=== PATIENT | female | born 1945 | race Caucasian/White ===

== ENCOUNTER 2023-03-28 12:30 | Emergency (ER) | payer MEDICARE, OTHER, SELFPAY ==
[2023-03-28 12:37] VITALS: BP 186/123; PULSE 76; RESP 16; TEMP 36.6; O2SAT 98; BMI 44.9
[2023-03-28 12:42] LABS: Glucose Point of Care 113 mg/dL (70-110)
--- NOTE | 2023-03-28 12:51 | ED_ITS ---
HPI - Dizziness General: Chief Complaint: Dizziness Stated Complaint: Dizzy, vision blurry, pressure in back of neck Time Seen by Provider: 03/28/23 12:37 History of Present Illness: HPI Narrative: Patient presents to the ER with complaints of dizziness for 2 weeks and change in vision for 5 days. Blood sugar upon arrival was 213. Nothing makes this vision change and dizziness worse or better. Patient denies any falls. Patient does use a walker. Patient denies any pain at this time. Review of Systems General: Reports: 10 or more systems reviewed and unremarkable except in HPI and below Physical Exam Const: COMMON NORMALS: no acute distress, average body habitus, patient oriented x3, no limitations, healthy appearing, alert and well nourished HENMT: COMMON NORMALS: normocephalic, atraumatic, hearing grossly normal bilaterally, external ears normal, Normal external nose present and moist oral mucous membranes HEAD & SCALP: normocephalic and atraumatic NOSE: Normal external nose present EXTERNAL EAR: Yes external ears normal Eye: COMMON NORMALS: Equal, round and reactive pupils present, EOMs intact bilaterally, conjunctivae normal and no scleral icterus CONJUNCTIVA: Yes conjunctivae normal PUPIL: Yes Equal, round and reactive pupils present Neck/C-Spine: COMMON NORMALS: full ROM, no lymphadenopathy, supple, no meningeal signs, no JVD and Thyroid normal THYROID: Thyroid normal Lymph: LYMPHATIC: no lymphadenopathy noted Chest: COMMONS NORMALS: normal inspection of the chest and normal palpation of entire chest wall Resp: COMMON NORMALS: normal respiratory effort, No retractions, No use of accessory muscles and clear to auscultation bilaterally AUSCULTATION: clear to auscultation bilaterally Cardio: COMMON NORMALS: no JVD, regular rate, regular rhythm, S1 normal heart sound present, S2 normal heart sound present, No gallops present (Cardio), No clicks present (Cardio), No murmurs present (Cardio) and No rub (Cardio) RATE: regular rate RHYTHM: regular rhythm HEART SOUNDS: S1 normal heart sound present and S2 normal heart sound present GI: COMMON NORMALS: Normal to inspection, nondistended, normoactive bowel sounds present, Soft to palpation, non-tender, No hepatosplenomegaly present and no masses PALPATION: Yes Soft to palpation and Yes No hepatosplenomegaly present : COMMON NORMALS: Yes no CVA tenderness BLADDER/KIDNEY EXAM: Yes no CVA tenderness Back/Pelvis: COMMON NORMALS: no CVA tenderness Neuro: COMMON NORMALS: patient oriented x3 SENSORIUM/ORIENTATION: Yes alert MENINGEAL SIGNS: Yes no meningeal signs Course 2 Vital Signs: Vital signs: Vital Signs Temperature 97.8 F 03/28/23 12:37 Pulse Rate 64 03/28/23 15:10 Respiratory Rate 20 H 03/28/23 15:10 Blood Pressure 176/85 03/28/23 15:10 Pulse Oximetry 97 03/28/23 15:10 Oxygen Delivery Me thod Room Air 03/28/23 13:16 MDM - Dizziness Medical Decision Making Patient arrives feeling dizzy for 2 weeks and having blurry vision for 5 days. Patient has had cataract surgery in the past and says she will follow-up with her eye doctor for the blurry vision. Dizziness she has had before. Was evaluated with physical exam and lab work lab work was essentially benign. Head CT showed no acute intracranial findings but moderate small vessel disease and mild mild to moderate parenchymal loss. These findings was discussed with the patient to is acceptable to follow-up with her PCP in the next week and follow- up with her eye doctor within the next week. Patient be discharged home Differential Diagnosis Unlikely adverse reaction to drug, benign paroxysmal positional vertigo, orthostatic hypotension, vertebral basilar insufficiency, cerebrovascular accident, acute vestibular neuronitis or transient cerebral ischemia Medical Records I reviewed the patient's medical records. Lab Data I reviewed the patient's lab results. 03/28/23 12:40 03/28/23 12:[address] 03/28/23 12:53 IMPRESSION: 1. No evidence of intracranial hemorrhage or mass effect. 2. Moderate small vessel changes. Mild to moderate parenchymal volume loss. 3. Intracranial vascular calcification. 4. No acute intracranial findings. Laboratory Results WBC 11.5 10^3/uL (4.0-10.0) H 03/28/23 12:40 RBC 5.34 10^6/uL (4.1-5.3) H 03/28/23 12:40 Hgb 14.0 g/dL (11.5-15.3) 03/28/23 12:40 Hct 45.2 % (37.0-47.0) 03/28/23 12:40 MCV 84.6 fl (81-99) 03/28/23 12:40 MCH 26.2 pg (28.0-34.0) L 03/28/23 12:40 MCHC 31.0 g/dL (30.0-36.0) 03/28/23 12:40 RDW 15.1 % (12.1-15.1) 03/28/23 12:40 Plt Count 189 10^3/cmm (130-400) 03/28/23 12:40 MPV 10.8 fL (7.4-10.4) H 03/28/23 12:40 Neut % (Auto) 42.1 % 03/28/23 12:40 Lymph % (Auto) 49.3 % 03/28/23 12:40 [place] % (Auto) 6.7 % 03/28/23 12:40 Eos % (Auto) 1.3 % 03/28/23 12:40 Baso % (Auto) 0.3 % 03/28/23 12:40 Neut # (Auto) 4.83 10^3/uL (1.8-7.7) 03/28/23 12:40 Lymph # (Auto) 5.7 10^3/uL (0.8-4.8) H 03/28/23 12:40 [place] # (Auto) 0.8 10^3/uL (0.2-0.9) 03/28/23 12:40 Eos # (Auto) 0.2 10^3/uL (0.0-0.8) 03/28/23 12:40 Baso # (Auto) 0.0 10^3/uL (0.0-0.1) 03/28/23 12:40 Nucleated RBC % (auto) 0 % 03/28/23 12:40 Nucleated RBCs # 0.0 /100WBC 03/28/23 12:40 Sodium 143 mmol/L (136-145) 03/28/23 12:40 Potassium 4.1 mmol/L (3.5-5.1) 03/28/23 12:40 Chloride 106 mmol/L (98-107) 03/28/23 12:40 Carbon Dioxide 25 mmol/L (22-29) 03/28/23 12:40 Anion Gap 16.1 (5-19) 03/28/23 12:40 BUN 14 mg/dL (8-23) 03/28/23 12:40 Creatinine 0.7 mg/dL (0.5-0.9) 03/28/23 12:40 GFR Calculation Not Reportable 03/28/23 12:40 Glucose 108 mg/dL (65-115) 03/28/23 12:40 POC Glucose 113 mg/dL (70-110) H 03/28/23 12:38 Calculated Osmolality 297 mOsm/kg (285-295) H 03/28/23 12:40 Calcium 9.3 mg/dL (8.5-10.5) 03/28/23 12:40 Total Bilirubin 0.5 mg/dL (0.15-1.2) 03/28/23 12:40 AST 23 U/L (0-32) 03/28/23 12:40 ALT 17 U/L (0-33) 03/28/23 12:40 Alkaline Phosphatase 101 U/L (35-105) 03/28/23 12:40 Total Protein 6.8 g/dL (6.6-8.7) 03/28/23 12:40 Albumin 4.2 g/dL (3.5-5.2) 03/28/23 12:40 Globulin 2.6 g/dL (1.3-4.6) 03/28/23 12:40 EKG Data EKG 1: I personally reviewed and interpreted this EKG as follows: EKG interpretation date: 03/28/23 EKG interpretation time: 12:41 Prior EKG tracings: not available for review Interpretation: EKG showed ventricular rate 76 beats a minute, CA interval 195, QRS duration 101, QTc 429, sinus rhythm with sinus arrhythmia no ST-T wave changes Discharge Plan Discharge Patient Disposition: Home Clinical Impression: Vertigo, Blurred vision, bilateral Condition: Stable Prescriptions: No Action albuterol sulfate 90 mcg/actuation HFA aerosol inhaler 1 - 2 puff INHALATION Q4H PRN (Reason: Shortness Of Breath) Dulera 200-5 mcg/actuation HFA aerosol inhaler 2 puff INHALATION BID Discharge Orders: Discharge ED (Routine); Ordered 03/29/23 Ordered By: Cam Swartz Patient Instructions: Blurred Vision (ED), Dizziness (ED) Activity Restrictions/Additional Instructions: Please follow-up with your family practice physician within the next 7 to 10 days and also your postage machine operator. You may benefit from further evaluation and treatment. If your symptoms worsen please feel free to return to the ER. Coding Level of Care Code ED [facility] Associate Professor for Donna Waletrs
--- NOTE | 2023-03-28 12:53 | ECG_ITS ---
[facility] Test Date: 2023-03-28 Pat Name: Coty Ellison Department: Room: Gender: Female Regulatory Process Manager: : 1945 Requested By: Cam Swartz Order Number: [id number] Zach MD: Dee Cruz M.D. Measurements Intervals [place] Rate: 76 P: 88 AR: 195 QRS: 13 QRSD: 101 T: 70 QT: 398 QTc: 450 Interpretive Statements SINUS RHYTHM WITH SINUS ARRHYTHMIA No previous ECG available for comparison Electronically Signed On 03-28-2023 15:59:22 CDT by Dee Cruz M.D. [email or web address]
--- NOTE | 2023-03-28 12:53 | CT_ITS ---
WS: [id number] CT HEAD TECHNIQUE: Noncontrast CT of the head obtained from the skullbase to the vertex. CLINICAL INFORMATION: dizziness, vision changes COMPARISON: None. DLP: 1043.[address] scans at [facility] use at least one of these dose optimization techniques: automated e xposure control; mA and/or kV adjustment per patient size (includes targeted exams where dose is matc hed to clinical indication); or iterative reconstruction. FINDINGS: No evidence of intracranial hemorrhage or mass effect. Ventricular system and basal cisterns are schulz nt. Moderate small vessel changes with moderate parenchymal volume loss. No extra-axial fluid collect ions. No evidence of mass or mass effect. Intracranial vascular calcification. Paranasal sinuses and mastoid air cells are well aerated. .Normal visualized soft tissues. CT/CT head wo con* [id number] IMPRESSION: 1. No evidence of intracranial hemorrhage or mass effect. 2. Moderate small vessel changes. Mild to moderate parenchymal volume loss. 3. Intracranial vascular calcification. 4. No acute intracranial findings.
--- NOTE | 2023-03-28 12:58 | PC.PHAR ---
PT STATES SHE ONLY HAS 2 PRESCRIPTION MEDICATIONS WHICH IS HER ALBUTEROL INHALER AND DULERA INHALER PT STATES SHE TAKES NO OTC MEDICATIONS
[2023-03-28 13:16] VITALS: BP 186/89; PULSE 67; RESP 12; O2SAT 97
[2023-03-28 13:24] LABS: Basophils % 0.3 %; Eosinophils # 0.2 10^3/uL (0.0-0.8); Eosinophils % 1.3 %; Hematocrit 45.2 % (37.0-47.0); Lymphocytes # 5.7 10^3/uL (0.8-4.8); Lymphocytes % 49.3 %; Mean Corpuscular Hemoglobin 26.2 pg (28.0-34.0); Mean Corpuscular Volume 84.6 fl (81-99); Mean Platelet Volume 10.8 fL (7.4-10.4); Monocytes # 0.8 10^3/uL (0.2-0.9); Monocytes % 6.7 %; Neutrophils # 4.83 10^3/uL (1.8-7.7); Neutrophils % 42.1 %; Nucleated Red Blood Cells % 0 %; Platelet Count 189 10^3/cmm (130-400); Red Blood Count 5.34 10^6/uL (4.1-5.3); Red Cell Distribution Width 15.1 % (12.1-15.1); White Blood Count 11.5 10^3/uL (4.0-10.0)
[2023-03-28 13:42] LABS: Alanine Aminotransferase 17 U/L (0-33); Albumin Level 4.2 g/dL (3.5-5.2); Alkaline Phosphatase 101 U/L (35-105); Anion Gap 16.1 (5-19); Aspartate Amino Transferase 23 U/L (0-32); Blood Urea Nitrogen 14 mg/dL (8-23); Calcium 9.3 mg/dL (8.5-10.5); Carbon Dioxide 25 mmol/L (22-29); Chloride 106 mmol/L (98-107); Creatinine Clr Calc Pharmacy 78.5664; Globulin 2.6 g/dL (1.3-4.6); Glucose 108 mg/dL (65-115); Osmolality Calculated 297 mOsm/kg (285-295); Potassium 4.1 mmol/L (3.5-5.1); Sodium 143 mmol/L (136-145); Total Bilirubin 0.5 mg/dL (0.15-1.2); Total Protein 6.8 g/dL (6.6-8.7)
[2023-03-28 14:26] VITALS: BP 207/94; PULSE 66; RESP 18; O2SAT 97
[2023-03-28] MEDS: hyDRALAzine 20 mg/mL INJ 1 mL IVP (14:41)
[2023-03-28 15:10] VITALS: BP 176/85; PULSE 64; RESP 20; O2SAT 97
== END 2023-03-28 15:11 | disposition home or self-care (01) ==
PROVIDERS: Emergency Provider Emergency Medicine
DX: R42 Dizziness and giddiness (principal); H53.8 Other visual disturbances
CPT/HCPCS: 36416; 70450; 80053; 82962; 85025; 93005; 96374; 99285; J0360

== ENCOUNTER 2025-04-27 02:04 | Emergency (ER) | payer MEDICARE, OTHER, SELFPAY ==
--- OUTSIDE RECORDS SUMMARY | 2025-04-27 02:20 | XMS_ITS | Encounter Summary ---
Author Organization [facility] Address [address] [place] [address] Care Team Providers Care Veneer Jointer Helper Name Role Phone Unavailable Primary Care Provider Unavailabl e Encounter Details Date Type Department Care Team (Late st Contact Info) Description 12/10/[address] [facility] Orthopedics- [address] [place] [address] Valentino Devine MD NO ADDRESS ON FILE Pain Social History Tobacco Use Types Packs/Day Years Used Date Smoking Tobacco: Never Alcohol Use Standard Drinks/Week Comments No 0 (1 standard drink = 0.6 oz pur e alcohol) Comments No Sex and Gender Information Value Date Recorded Sex Assigned at Not on file Legal Sex Female 5:51 AM SUPERVISOR WARPING DEPARTMENT Gender Identity Not on file Sexual Orientation Not on file Occupation Industry Job Start Date Job End Date Not on file Not on file Not on file Not on file documented as of this encounter Plan of Treatment Not on file documented as of this encounter Results * XR SHOULDER 2+ VW RIGHT (12/10/2011 3:09 PM SUPERVISOR WARPING DEPARTMENT) Anatomical Region Laterality Modality Upper Extremity Computed Radiogr aphy Narrative 12/12/2011 7:13 AM SUPERVISOR WARPING DEPARTMENT AP and axillary views of her 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 us Valentino Devine MD DIAGNOSTIC IMAGING ORDERA BLES Final Result documented in this encounter Visit Diagnoses Diagnosis Pain Generalized pain documented in this encounter
--- OUTSIDE RECORDS SUMMARY | 2025-04-27 02:20 | XMS_ITS | Clinical Summary ---
Author Organization [facility] Address [address] Attn: Epic Prelude ADT [place] [address] Care Team Providers Care Ribbon Blockmaker Name Role Phone Daphne Beck AIRCRAFT LOADMASTER SUPERINTENDENT Primary Care Provider [phone] Allergies Active Allergy Reactions Criticality Noted Date Comments Cortisone Rash High 06/01/2013 Pineapple Anaphylaxis High 01/23/2012 Watermelon Anaphylaxis High 01/23/2012 Active Problems Problem Noted Date Diagnosed Date Primary localized osteoarthrosis, lower leg bila t 06/01/2013 Knee pain, left 05/29/2013 Acromioclavicular joint arthritis bilat 12/10/19 12 Bilateral shoulder pain 10/26/2011 Unstable angina 10/22/2008 Generalized Osteoarthrosis, Involving Multiple S it 08/10/2008 Overview (02/01/2021): Most likely cause for symptoms of joint pain and stiffness. I would not favor the previously diagnosed condition of Rheumatoid Arthritis. Family History Medical History Relation Name Comments Cancer Father Other Father Mother fro m ALS Other Mother Relation Name Status Comments Daughter Alive Father Maternal Grandfather Maternal Grandmother Mother Paternal Grandfather Paternal Grandmother Social History Tobacco Use Types Packs/Day Years Used Date Smoking Tobacco: Never Smokeless Tobacco: Never Alcohol Use Standard Drinks/Week Comments No 0 (1 standard drink = 0.6 oz pur e alcohol) Comments Unknown Sex and Gender Information Value Date Recorded Sex Assigned at Not on file Legal Sex Female 10:35 AM SUPERINTENDENT OIL FIELD DRILLING Gender Identity Not on file Sexual Orientation Not on file Last Filed Vital Signs Vital Sign Reading Time Taken Comments Blood Pressure 170/80 11/01/2015 12:31 PM SUPERINTENDENT OIL FIELD DRILLING Pulse - - Temperature - - Respiratory Rate - - Oxygen Saturation - - Inhaled Oxygen Concentration - - Weight 131 kg (288 lb 12.8 oz) 11/01/2015 12:31 PM SUPERINTENDENT OIL FIELD DRILLING Height 165.1 cm (5' 5 ) 11/01/2015 12:31 PM SUPERINTENDENT OIL FIELD DRILLING Body Mass Index 48.06 11/01/2015 12:31 PM SUPERINTENDENT OIL FIELD DRILLING Plan of Treatment Health Maintenance Due Date Last Done Comments DTAP/TDAP/TD VACCINES (1 - Tdap) 1965 PNEUMOCOCCAL VACCINE 50+ YEARS (1 of 1 - PCV) 10/09/18 97 ZOSTER VACCINE (1 of 2) 1996 OSTEOPOROSIS SCREENING 2011 RSV VACCINE (60+ or ) (1 - 1-dose 75+ series) 2021 INFLUENZA VACCINE (#1) 2025 Care Teams Ribbon Blockmaker Relationship Specialty Start Date End Date Daphne Beck NP [address] [place] [address] [id number] PCP - General 08/10/08
--- OUTSIDE RECORDS SUMMARY | 2025-04-27 02:20 | XMS_ITS | Encounter Summary ---
Author Organization [facility] Address [address] [place] [address] Care Team Providers Care Radial Router Operator Name Role Phone Unavailable Primary Care Provider Unavailabl e Encounter Details Date Type Department Care Team (Late st Contact Info) Description 10/22/2008 Ancillary Orders [facility] Cardiology- [place] [address] [place] [address] Gemma Harris MD [address] [place] [address] Other and Unspecified Angina Pectoris Social History Tobacco Use Types Packs/Day Years Used Date Smoking Tobacco: Never Assessed Comments Unknown Sex and Gender Information Value Date Recorded Sex Assigned at Not on file Legal Sex Female 5:51 AM FINANCIAL REPORTING MANAGER Gender Identity Not on file Sexual Orientation Not on file documented as of this encounter Plan of Treatment Not on file documented as of this encounter Results * CL CORONARY ANGIOGRAM W/ POSS PCI (11/02/2008 3:30 PM FINANCIAL REPORTING MANAGER) Narrative Transcriptions Gemma Harris MD - 10/25/2008 8:16 AM CST COTY STEPHENSON [id number] PROCEDURE DATE: 10/25/2008 PROCEDURE: Left heart catheterization, selective coronary angiography,left ventriculography. INDICATION: Angina, history of coronary artery disease, prior myocardialinfarction. After consents were signed, the patient was taken to the CardiacCatheterization Laboratory, draped in a sterile fashion with exposure ofthe right femoral groin. A 6-Turkmen sheath was inserted. A 6-FrenchJudkins right 4 cm curve, Alberto left 4 cm curve and pigtail catheterswere used for diagnostic angiography. Left ventriculogram performed in the right anterior oblique projectionrevealed a normal LV systolic wall motion. Ejection fraction was 65%.There was no mitral regurgitation. There was no systolic gradient acrossthe aortic valve. LVEDP was normal at 3 mm of mercury. LV systolicpressure 110. Aortic pressure 110-120/70. Coronary angiographic evaluation demonstrated normal left main coronaryartery. The left anterior descending had normal plaque in its apicalsegment, but was otherwise free of significant disease, as were thediagonal vessels. The left circumflex was a medium sized vessel with nosignificant angiographic disease. Right coronary artery was dominant and demonstrated minimal plaquing.Posterior descending and posterior anterolateral branch were free ofsignificant disease in this dominant right coronary artery. CONCLUSIONS: 1. No evidence of significant coronary atherosclerotic heart disease. 2. Normal left ventricular systolic wall motion. Ejection fraction of65%. GEMMA HARRIS MD/[id number] sb D 10/25/2008 08:16:56 T 10/25/2008 08:19:38 [id number] cc: TALENT ASSISTANT REYNOLD PANTOJA DO 4H1 us Gemma Harris MD FLUOROSCOPY ORDERABLES Final Result documented in this encounter Visit Diagnoses Diagnosis Other and unspecified angina pectoris Unstable angina (CMS/HCC)- Primary Intermediate coronary syndrome Other and unspecified angina pectoris documented in this encounter
--- OUTSIDE RECORDS SUMMARY | 2025-04-27 02:20 | XMS_ITS | Clinical Summary ---
Author Organization [facility] melendez [facility] Address [address] [place] [address] Phone Care Team Providers Care Premium Note Interest Calculator Clerk Name Role Phone Unavailable Primary Care Provider Unavailabl e Allergies Active Allergy Reactions Criticality Noted Date Comments Cortisone Rash High 06/01/2013 Pineapple Anaphylaxis High 01/23/2012 Watermelon Anaphylaxis High 01/23/2012 Medications MULTIVITAMIN (DAILY VITAMIN FORMULA ORAL) Take by mouth daily. Active celecoxib (CELEBREX) 200 mg capsule Take 1 Cap by mouth daily. 45 Cap 0 12/10/2013 Active Active Problems Problem Noted Date Diagnosed Date Primary localized osteoarthrosis, lower leg bila t 06/01/2013 Knee pain, left 05/29/2013 Acromioclavicular joint arthritis bilat 12/10/19 12 Bilateral shoulder pain 10/26/2011 Unstable angina 10/22/2008 Generalized Osteoarthrosis, Involving Multiple S it 08/10/2008 Overview (08/10/2008): Most likely cause for symptoms of joint [...] on file Legal Sex Female 5:51 AM BOARDING MACHINE OPERATOR Gender Identity Not on file Sexual Orientation Not on file Occupation Industry Job Start Date Job End Date Not on file Not on file Not on file Not on file Last Filed Vital Signs Vital Sign Reading Time Taken Comments Blood Pressure 170/80 11/01/2015 12:31 PM BOARDING MACHINE OPERATOR Pulse 71 12/10/2013 1:29 PM BOARDING MACHINE OPERATOR Temperature 37.3 C (99.1 F) 08/10/2008 3:47 PM BOARDING MACHINE OPERATOR Respiratory Rate - - Oxygen Saturation - - Inhaled Oxygen Concentration - - Weight 131 kg (288 lb 12.8 oz) 11/01/2015 12:31 PM BOARDING MACHINE OPERATOR Height 165.1 cm (5' 5 ) 11/01/2015 12:31 PM BOARDING MACHINE OPERATOR Body Mass Index 48.06 11/01/2015 12:31 PM BOARDING MACHINE OPERATOR Plan of Treatment Health Maintenance Due Date Last Done Comments DTAP/TDAP/TD VACCINES (1 - Tdap) 1965 PNEUMOCOCCAL VACCINE 50+ YEARS (1 of 1 - PCV) 10/09/18 97 ZOSTER VACCINE (1 of 2) 1996 OSTEOPOROSIS SCREENING 2011 RSV VACCINE (60+ or ) (1 - 1-dose 75+ series) 2021 INFLUENZA VACCINE (#1) [address] [place] [address] MEDICARE PART A AND B Advance Directives For more information, please contact: [phone] * Full Code (Latest Code Status on File) Date Activated Date Inactivated Comments 10/25/2008 6:17 AM 10/25/2008 1:50 PM
--- OUTSIDE RECORDS SUMMARY | 2025-04-27 02:20 | XMS_ITS | Data Portability ---
Author Organization RICHI [facility], [facility] Address [address] [address] Care Team Providers Care Stunner Animal Name Role Phone KATELYNNRORY SANTOS Primary Care Provider [phone] Assessment Encounter Date Assessment Date Assessment LastModified by Organization Details LastModified Time 02/27/2024 02/27/2024 Pt offered PT. She wants to wait because her pain is improving. Not available 02/27/2024 15:10:57 09/15/2024 09/15/2024 We discussed medication for cholesterol and she is not interested at this time. Not available 09/15/2024 15:56:01 Plan of Treatment Reminders Order Date Submit Date Provider Last Modified By Organization Details Last Modified Time Details Appointments None recorded. Lab CMP, serum or plasma 2023 [facility], [address], [address], [place], [address], 13:45:26 lipid panel, blood 2023 [facility], [address], [address], [place], [address], 13:45:28 CBC 2023 [facility], [address], [address], [place], [address], 13:17:38 biopsy, tissue 2023 024 [facility], [address] [facility] [address] [place], [address], 4 21:00:17 Referral None recorded. Procedures excision, lesion (PROC) 2023 024 astrange1 2 [facility], [address] [place] [address] 1, [place], [address], 4 12:51:21 Surgeries None recorded. Imaging None recorded. Medication Orders propranolol 20 mg tablet 2024 025 [facility], [address] [place], [address], 16:07:14 Patient TargetsNo targets recorded. Patient InstructionsNo instructions recorded. Reason for Referral None Reported. Results Created Date Observation Date Name Description Value Unit Range Abnormal Flag Note LastModifiedBy Organization Detail LastModifiedTime 02/28/2003/05/2024 TISSU E PATHO LOGY clinical information None given Not Available [facility] [address], [place], [address], 03/05/2024 21:00:17 02/28/2003/05/2024 TISSU E PATHO LOGY pathologist Savita jones Jr., M.D. Board Certi fied in Anato alejandrina Patho logy, Clini teresa Patho logy and Cytop athol ogy, Speci alizi ng in Urolo gic Patho logy (elec troni c signa ture) Not Available [facility] [address] [place], [address], 03/05/2024 21:00:17 02/28/2003/05/2024 TISSU E PATHO LOGY A source Skin, left tempr al, excis ion Not Available [facility] [address] [place], [address], 03/05/2024 21:00:17 02/28/20 24 03/05/2024 TISSU E PATHO LOGY A gross description Speci men is recei faviola in 10% neutr al buffe red forma antonio, label ed with multi ple patie nt ident ifier s and consi sts of one piece from a punch skin biops y measu ring 0.4 x 0.3 x 0.3 cm, circu lar in shape and yello w-whi te in color . The yadira ns are inked green . The speci men is bisec maria dolores and entir maggie submi tted in one casse tte(s ). Gross exam( s) perfo rmed at: [facility] [address] [place] [address] [place] [address] Labor atory Direc tor: MARIA ESTHER Guevara MD Not Available [facility] [address] [place], [address], 03/05/2024 21:00:17 02/28/20 24 03/05/2024 TISSU E PATHO LOGY A diagnosis Trich ilemm palomo. Yadira ns appea r uninv olved . Not Available [facility] [address] [place], [address], 03/05/2024 21:00:17 09/08/20 24 09/08/2024 CBC WBC 11.7 x10 4.0-10 .5 high Not Available [facility] [address] [facility] 1, [place], [address], 09/08/2024 13:17:38 09/08/20 24 09/08/2024 CBC RBC 5.52 x10 3.50-5 .50 high Not Available [facility] [address] [facility] 1, [place], [address], 09/08/2024 13:17:38 09/08/20 24 09/08/2024 CBC HGB 14.8 g/dL 12.0-1 6.0 Not Available [facility] [address], [place], [address], 09/08/2024 13:17:38 09/08/20 24 09/08/2024 CBC HCT 44.6 % 37.0-4 7.0 Not Available [facility] [address], [place], [address], 09/08/2024 13:17:38 09/08/20 24 09/08/2024 CBC MCV 80.8 fL 80.0-9 9.9 Not Available [facility] [address], [place], [address], 09/08/2024 13:17:38 09/08/20 24 09/08/2024 CBC MCH 26.8 pg 27.0-3 2.0 low Not Available [facility] [address] [facility] 1, [place], [address], 09/08/2024 13:17:38 09/08/20 24 09/08/2024 CBC MCHC 33.1 g/dL 32.0-3 6.0 Not Available [facility] [address] [facility] 1, [place], [address], 09/08/2024 13:17:38 09/08/20 24 09/08/2024 CBC RDW 15.4 % 11.5-1 4.5 high Not Available [facility] [address] [facility] 1, [place], [address], 09/08/2024 13:17:38 09/08/20 24 09/08/2024 CBC plt 178.3 x10 140.0- 451.0 Not Available [facility] [address] [facility] 1, [place], [address], 09/08/2024 13:17:38 12/03/09/08/2024 CBC lymphocytes % 41.0 % 20.0-5 0.0 Not Available [facility] [address] [facility], [place], [address], 09/08/2024 13:17:38 09/08/20 24 09/08/2024 CBC granulcytes % 49.6 % 30.0-7 0.0 Not Available [facility] [address] [facility], [place], [address], 09/08/2024 13:17:38 09/08/20 24 09/08/2024 CBC monocytes % 7.1 % 2.0-16 .0 Not Available [facility] [address] [facility], [place], [address], 09/08/2024 13:17:38 09/08/20 24 09/08/2024 CBC granulcytes# 5.8 x10 Not Leda ilable [facility] [address] [facility] 1, [place], [address], 09/08/2024 13:17:38 09/08/20 24 09/08/2024 CBC lymphocytes # 4.8 x10 Not Available [facility] [address] [facility], [place], [address], 09/08/2024 13:17:38 09/08/20 24 09/08/2024 CBC monocytes # 0.8 x10 Not Avai [facility]able [facility] [address] [facility] 1, [place], [address], 09/08/2024 13:17:38 09/08/20 24 09/08/2024 CMP (FEMA LE) glucose 88.0 mg/dL 60.0-9 9.0 Not Available [facility] [address] [facility], [place], [address], 09/08/2024 13:45:26 09/08/20 24 09/08/2024 CMP (FEMA LE) BUN (blood urea nitrogen) 20.0 mg/dL 10.0-2 6.0 Not Available [facility] [address] [facility] 1, [place], [address], 09/08/2024 13:45:26 09/08/20 24 09/08/2024 CMP (FEMA LE) creatinine (serum) 1.0 mg/dL 0.4-1. 5 Not Available [facility] [address] [facility], [place], [address], 09/08/2024 13:45:26 09/08/20 24 09/08/2024 CMP (FEMA LE) BUN/creatini ne ratio 20.00 ratio Not Available [facility] [address] [facility], [place], [address], 09/08/2024 13:45:26 09/08/20 24 09/08/2024 CMP (FEMA LE) eGFR calculated 57.1 Not Available [facility] [address] [facility], [place], [address], 09/08/2024 13:45:26 09/08/20 24 09/08/2024 CMP (FEMA LE) total protein 7.5 g/dL 6.0-8. 5 Not Available [facility] [address] [facility], [place], [address], 09/08/2024 13:45:26 09/08/20 24 09/08/2024 CMP (FEMA LE) total bilirubin 0.7 mg/dL 0.2-1. 3 Not Available [facility] [address] [facility], [place], [address], 09/08/2024 13:45:26 09/08/20 24 09/08/2024 CMP (FEMA LE) albumin 4.4 g/dL 3.5-5. 5 Not Available [facility] [address] [facility] [address] [facility] 1, [place], [address], 09/08/2024 13:45:26 09/08/20 24 09/08/2024 CMP (FEMA LE) globulin 3.1 calc Not Available [facility] [address] [facility] 1, [place], [address], 09/08/2024 13:45:26 09/08/20 24 09/08/2024 CMP (FEMA LE) AST (SGOT) 34.0 U/L 0.0-46 .0 Not Available [facility] [address] [facility] [address] [facility] 1, [place], [address], 09/08/2024 13:45:26 09/08/20 24 09/08/2024 CMP (FEMA LE) altv (SGPT) 19.0 U/L 13.0-6 9.0 normal Not Available [facility] [address] [facility] [address] [facility] 1, [place], [address], 09/08/2024 13:45:26 09/08/20 24 09/08/2024 CMP (FEMA LE) A/G ratio 1.4 ratio Not Available [facility] [address] [facility], [place], [address], 09/08/2024 13:45:26 09/08/20 24 09/08/2024 CMP (FEMA LE) ALP phos 97.0 U/L 30.0-1 40.0 normal Not Available [facility] [address] [facility] 1, [place], [address], 09/08/2024 13:45:26 09/08/20 24 09/08/2024 CMP (FEMA LE) calcium 9.7 mg/dL 8.4-10 .5 Not Available [facility] [address] [facility], [place], [address], 09/08/2024 13:45:26 09/08/20 24 09/08/2024 CMP (FEMA LE) sodium 143.0 mmol/ L 136.0- 145.0 Not Available [facility] [address] [facility] [address] [facility] 1, [place], [address], 09/08/2024 13:45:26 09/08/20 24 09/08/2024 CMP (FEMA LE) potassium 4.3 mmol/ L 3.5-5. 1 Not Available [facility] [address] [facility] [address] [facility] 1, [place], [address], 09/08/2024 13:45:26 09/08/20 24 09/08/2024 CMP (FEMA LE) chloride 105.0 mmol/ L 98.0-1 10.0 normal Not Available [facility] [address] [facility] [address] [facility] 1, [place], [address], 09/08/2024 13:45:26 09/08/20 24 09/08/2024 CMP (FEMA LE) C02 31.0 mmol/ L 22.0-3 1.0 Not Available [facility] [address] [facility] 1, [place], [address], 09/08/2024 13:45:26 09/08/20 24 09/08/2024 CMP (FEMA LE) anion gap 7.0 calc Not Available [facility] [address] [place] [address] [facility] 1, [place], [address], 09/08/2024 13:45:26 09/08/20 24 09/08/2024 CMP (FEMA LE) osmolality 297.1 calc Not Available [facility] [address] [facility] [address] [facility] 1, [place], [address], 09/08/2024 13:45:26 09/08/20 24 09/08/2024 LIPID PROFI LE (FEMA LE) cholesterol 215.0 mg/dL 0.0-20 0.0 high Not Available [facility] [address] [facility] 1, [place], [address], 09/08/2024 13:45:28 09/08/20 24 09/08/2024 LIPID PROFI LE (FEMA LE) trig 270.0 mg/dL 0.0-15 0.0 high Not Available [facility] [address] [facility] 1, [place], [address], 09/08/2024 13:45:28 09/08/20 24 09/08/2024 LIPID PROFI LE (FEMA LE) HDL - direct 40.0 mg/dL >40.0 Not Available [facility] [address] [facility] 1, [place], [address], 09/08/2024 13:45:28 09/08/20 24 09/08/2024 LIPID PROFI LE (FEMA LE) VLDL - direct 54.0 mg/dL Not Available [facility] [address] [facility] 1, [place], [address], 09/08/2024 13:45:28 09/08/20 24 09/08/2024 LIPID PROFI LE (FEMA LE) LDL - direct 121.0 mg/dL 0.0-13 0.0 Not Available [facility] [address] [facility] 1, [place], [address], 09/08/2024 13:45:28 Result Notes None recorded. Problems Name Problem SNOMED Code Status Onset Date Resolution Date Notes Provider Name and Address Organization Details Recorded Time Myocardi al infarcti on 37437861 Completed 202203/31/2025 Myocardia l infarctio n; 1980 - It may have been a panic attack based on the patients descripti on.; 2:53PM by Thad A. Erik, RN, Office Visit; Promoted; acuity set as *; JANES SHADYDALI Cardona, [facility] 14:37:13 Rheumato id pepper guevara 26420566 Active 2022 JANES SHADYDALI MIRACLE null, [facility] 14:37:17 Dyspnea 379044271 Active 2022 PETARRICK SHADYDALI MIRACLE null, [facility] 14:37:06 Body mass index 40+ - severely obese 009139014 Active 2022 JANES SHADYDALI Cardona, [facility] 14:36:53 Chronic obstruct po pulmonar y disease 79923725 Active 2022 JANES LEIJA Cardona, [facility] 14:36:57 Anxiety 23138172 Active 2024 Rory Zimmerman MD [address] [place] [address], [phone] , [facility] 16:02:00 Problem Notes None recorded. Procedures Surgical History Date Name Laterality Status Provider Name and Address Organization Details Recorded Time 02/27/20 24 jr shave biopsy completed Rory Zimmerman MD [address] [place] [address], [phone], [facility] 02/27/2024 15:10:26 Appendectomy completed JANES TAMEZ [facility] 02/12/2024 14:01:29 Imaging Results None recorded. Procedure Notes None recorded. Medical Equipment None Reported. Allergies Allergen ID Allergen Name Allergen Category Reaction Reaction Severity Criticality Documentation Date Start Date Code Code System Note Provider Name and Address Organization Details Recorded Time 39212 pineapple allergeni c extract food,medi cation anaphylax is Not available Not available 05/04/2023 05739 5 RxNorm React ion: Anaph ylaxi s; Comme nt: Recor ded 10/23 2:53P M by Bobo Valencia RN, Offic e Visit ; German whitten; Crystal miller ce: *; ; Not Available [facility] 02:28:18 Medications Name Sig Start Date Stop Date Status Note LastModified by Organization Details LastModified Time amoxicill in 500 mg capsule TAKE 2 CAPSULES BY MOUTH STAT AND THEN TAKE 1 CAPSULE BY MOUTH 3 TIMES DAILY FOR 7 DAYS 12/10 completed Not Available Not Available Not Available cephalexi n 500 mg capsule TAKE 1 CAPSULE BY MOUTH THREE TIMES DAILY 03/05 completed Not Available Not Available Not Available nitrofura ntoin macrocrys franklin 100 mg capsule TAKE 1 CAPSULE BY MOUTH TWICE DAILY 03/05 completed Not Available Not Available Not Available albuterol sulfate HFA 90 mcg/actua tion aerosol inhaler INHALE 1 TO 2 PUFFS BY MOUTH EVERY 4 HOURS NEEDED active Not Available Not Available No t Available propranol ol 20 mg tablet TAKE 1 TABLET BY MOUTH TWICE DAILY NEEDED active Not Available Not Available No t Available escitalop kelly 5 mg tablet TAKE 1 TABLET BY MOUTH ONCE DAILY 02/11 completed Not Available Not Available Not Available nitrofura ntoin monohydra te/macroc rystals 100 mg capsule TAKE 1 CAPSULE BY MOUTH TWICE DAILY FOR 7 DAYS 06/14 completed Not Available Not Available Not Available cephalexi n TID 06/14 completed VO JR/bh; Recorded 11/07/19 23 3:53PM by Thad Valencia RN, Historic al Summary; Refill Quantity : 0; Not Available Not Available Not Available Dulera 200 mcg-5 mcg/actua tion HFA aerosol inhaler INHALE 2 PUFFS BY MOUTH TWICE DAILY active Not Available Not Available No t Available Dulera 100 mcg-5 mcg/actua tion HFA aerosol inhaler INHALE 2 PUFFS BY MOUTH TWICE DAILY 03/05 completed Not Available Not Available Not Available Dulera bid 06/14 completed Recorded 09/03/20 22 1:49PM by Rory Zimmerman MD, Office Visit; Refill Quantity : 1; Each; Not Available Not Available Not Available BinaxNOW COVID-19 Ag Self Test kit TEST DIRECTED TODAY 03/05 completed Not Available Not Available Not Available Vitals Date Recorded Body height Body mass index (BMI) Body weight Oxygen saturation Oxygen saturation in Arterial blood by Pulse oximetry Heart rate Respiratory rate Body temperature Systolic And Diastolic Provider Name and Address Organization Details Last Updated DateTime 4 163.83 cm 44.3 kg/m2 494618. 2 g 97 % 97 % 81 /min 20 /min 97.8 [degF] 138/74 mm[Hg] [facility] 4 13:37:37 Date Recorded Body height Body mass index (BMI) Body weight Oxygen saturation Oxygen saturation in Arterial blood by Pulse oximetry Heart rate Respiratory rate Body temperature Systolic And Diastolic Provider Name and Address Organization Details Last Updated DateTime 4 163.83 cm 44.4 kg/m2 389889 g 98 % 98 % 69 /min 18 /min 98.4 [degF] 140/76 mm[Hg] PETARBA SHADYSCHDEMiya [facility] 4 15:49:32 Date Recorded Body height Body mass index (BMI) Body weight Oxygen saturation Oxygen saturation in Arterial blood by Pulse oximetry Heart rate Respiratory rate Body temperature Systolic And Diastolic Provider Name and Address Organization Details Last Updated DateTime 5 163.83 cm 43 kg/m2 905392. 86 g 98 % 98 % 72 /min 20 /min 98.6 [degF] 142/80 mm[Hg] TREBA NEUSCHDEMiya [facility] 5 14:48:59 Date Recorded Body height Body mass index (BMI) Body weight Oxygen saturation Oxygen saturation in Arterial blood by Pulse oximetry Heart rate Respiratory rate Body temperature Systolic And Diastolic Provider Name and Address Organization Details Last Updated DateTime 4 163.83 cm 44 kg/m2 617392. 72 g 98 % 98 % 72 /min 20 /min 98.2 [degF] 140/80 mm[Hg] TREBA BERRYDEMiya [facility] 15:33:28 Social History Question Answer Notes LastModified by Organizat ion Details LastModified Time Tobacco Smoking Status Never Smoker THAD VALENCIA lino, [facility] 06/14/2023 14:57:10 Are You Blind Or Do You Have Difficulty Seeing? No Information not available 03/31/2025 Are You Deaf Or Do You Have Serious Difficulty Hearing? No Information not available 03/31/2025 What Was The Date Of Your Most Recent Tobacco Screening? 03/31/2025 Information not available 03/31/2025 What Is Your Relationship Status? Information not available 06/14/2023 Do You Have Difficulty Walking Or Climbing Stairs? No Information not available 03/31/2025 Sex: Unknown Functional Status Question Answer Note LastModified by Organizat ion Details LastModified Time Do you use any illicit or recreational drugs? No Information not available 06/14/2023 Do you or have you ever used any other forms of tobacco or nicotine? No Information not available 06/14/2023 What is your level of alcohol consumption? None Information not available 06/14/2023 Are you able to walk? YESASSIST Information not available 03/31/2025 Do you have difficulty doing errands alone? No Information not available 03/31/2025 Are you able to care for yourself? Yes Information n ot available 03/31/2025 Do you have difficulty dressing or bathing? No Information not available 03/31/2025 Mental Status Question Answer Note LastModified by Organization D etails LastModified Time Do you have difficulty concentrating, remembering or making decisions? No Information no t available 03/31/2025 Family History Nothing Reported. Medical History No medical history recorded. Gynecological HistoryNo gynecological history recorded. Obstetrics History GPAL:G 0 P 0 0 0 0 Immunizations Vaccine Type Date Status Note Provider Nam e and Address Organization Details Recorded Time COVID-19, mRNA, LNP-S, PF, 50 mcg/0.5 mL 07/20/2023 completed JANES huynh [facility] 12/11/2023 15:17:40 COVID-19, mRNA, LNP-S, PF, 100 mcg/0.5mL dose or 50 mcg/0.25mL dose 01/04/2021 completed THAD huynh [facility] 03/05/2023 12:46:18 COVID-19, mRNA, LNP-S, PF, 100 mcg/0.5mL dose or 50 mcg/0.25mL dose 02/01/2021 completed THAD huynh [facility] 03/05/2023 12:46:18 COVID-19, mRNA, LNP-S, PF, 100 mcg/0.5mL dose or 50 mcg/0.25mL dose 09/01/2021 completed THAD huynh [facility] 03/05/2023 12:46:18 Past Encounters Encounter ID Performer Location Encounter Start Date Encounter Closed Date Diagnosis/Indication Diagnosis SNOMED-CT Code Diagnosis ICD10 Code Diagnosis Note [id number] oRry Zimmerman MD [facility] ([facility]) [address] [place] [phone] 03/05/2023 11:39:54 03/05/2023 20:10:09 Dyspnea 886480743 R06.00 Rheumatoid arthritis 698 77161 M06.9 No rx at this time. Dizziness 481691005 R42 Body mass index 40+ - severely obese 155323203 Z68.42 Alpha-1-an titrypsin deficiency 46600721 E88.01 Chronic ob structive pulmonary disease 04532125 J44.9 Weakness present 2901834 07 M62.81 Near syncope 285550954 R 55 Dysuria 91115674 R30.0 [id number] CONSTANCE MONTIEL [facility] ([facility]) [address] [place] [id number] 5 03/28/2023 11:53:48 04/08/2023 16:47:06 Dizziness 979656914 R42 Patient referred to ED due to worsening symptoms, CLARK, elevated BP, and visual changes. Report called to Tomi at [facility] ED. Patient went by private vehicle, daughter driving. 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 [id number] Rory Zimmerman MD [facility] ([facility]) [address] [place] [id number] 5 02/12/2024 13:43:38 02/12/2024 14:30:07 Chronic obstructive pulmonary disease 65575009 J44.9 [id number] Rory Zimmerman MD [facility] ([facility]) [address] [place] [id number] 5 02/27/2024 13:27:16 02/27/2024 15:10:03 Skin lesion 68641391 L98.9 Low back pain 480786027 M54.50 [id number] Rory Zimmerman MD [facility] ([facility]) [address] [place] [id number] 5 03/16/2024 15:05:42 03/16/2024 17:40:21 Trichilemmoma 655017702 D23.9 [id number] Rory Zimmerman MD [facility] ([facility]) [address] [place] [id number] 5 09/08/2024 12:45:04 09/09/2024 12:03:48 Rheumatoid arthritis 08811343 M06.9 No rx at this time. [id number] Rory Zimmerman MD [facility] ([facility]) [address] [place] [id number] 5 09/15/2024 14:31:50 09/15/2024 15:57:49 Chronic obstructive pulmonary disease 19136709 J44.9 [id number] Rory Zimmerman MD [facility] ([facility]) [address] [place] [id number] 5 03/31/2025 13:51:15 03/31/2025 16:12:45 Chronic obstructive pulmonary disease 95610054 J44.9 Low back pain 333263198 M54.50 Rheumatoid arthritis of right shoulder 1643480149 664871 M06.9 Anxiety 29918318 F41.8 Health Concerns Section Related Observation LastModified by Organization Detai ls LastModified Time None Recorded Concern Status LastModified by Organization Details LastModified Time None Recorded Advance Directives Directive None Recorded Payers Insurance Date Sequence Insurance Name Policy Number Policy Alvarado Covered Member ID Alvarado Member ID Guarantor Name 03/28/2025 [place] - [facility] (MEDICARE) Coty Enriquez Terra [id number] Coty Enriquez Terra 03/28/2025 2 () Coty Enriquez Terra [id number] Coty Enriquez Terra 03/28/2025 1 [place] Coty Enriquez Terra [id number] Coty Enriquez Terra Notes Date Note Type Note Provider Name and Address Organization Details Recorded Time 02/27/2024 text/html Pt is here for removal of skin lesion on left templePt states she pulled a muscle in her back getting out of a loner car Rory Zimmerman MD [address] [place] [address], [phone], [facility] 02/27/2024 15:11:03 03/16/2024 text/html Pt is here for follow up after removal of skin lesion on left synagogue Rory Zimmerman MD [address] [place] [address], [phone], [facility], Сергей. 03/16/2024 16:28:23 09/15/2024 text/html COPDReported bypatient.Onset/Ankit ng:intermittent Duration:chronic Severity:not limiting Alleviating factors:relieved with bronchodilator Associated Symptoms:no fever;fatigue;coughi ng up sputum;thick, yellow-green sputum;blood-streake d sputum;cough;wheezin g;depression;anxiety Pt states the last 2 weeks she has been taking robitussin and mucinex, the cough has decreased the last 2 days.Pt is having more anxiety her husbands dementia is getting worse, last week the battery assembler dry cell went to her house after she got gas and her said he paid but he never did, Rory Zimmerman MD [address] [place] [address], [phone], [facility], Сергей. 09/15/2024 15:56:36 03/31/2025 text/html COPDReported bypatient.Onset/Ankit ng:intermittent Duration:chronic Severity:not limiting Alleviating factors:relieved with bronchodilator Associated Symptoms:no fever;fatigue;cough; wheezing;depression; anxiety Pt is still having anxiety, she states she did have a meltdown, her husbands health is getting worse. Rory Zimmerman MD [address] [place] [address], [phone], [facility], Сергей. 03/31/2025 16:07:33 OBGyn Episode No OBEpisode recorded.
--- OUTSIDE RECORDS SUMMARY | 2025-04-27 02:20 | XMS_ITS | Encounter Summary ---
Author Organization [facility] Address [address] [place] [address] Care Team Providers Care Supervisor Compounding And Finishing Name Role Phone Unavailable Primary Care Provider Unavailabl e Encounter Details Date Type Department Care Team (Late st Contact Info) Description 02/07/2008 Emergency [facility] Emergency Department [address] 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 The heart size is normal. There is some coarsening of the interstitial lung markings. Calcified granulomata are noted. There is no pleural effusion no focal airspace opacity. Impression: No active pulmonary disease. Dictated By: Rufina Amaya M.D. Electronically Signed By: Rufina Amaya M.D. Date Signed: 02/08/08 GRB Procedure Note Rufina Amaya - 02/08/2008 Two views of the chest are submitted and no old study is available. The heart size is normal. There is some coarsening of the interstitiallung markings. Calcified granulomata are noted. There is no pleural effusion no focal airspaceopacity. Impression: No active pulmonary disease. Dictated By: Rufina Amaya M.D. Electronically Signed By: Rufina Amaya M.D. Date Signed: 02/08/08 GRB us Physician Sj Ed DIAGNOSTIC IMAGING ORDERABLES Fi nal Result documented in this encounter Visit Diagnoses Diagnosis Personal history of other diseases of respiratory system documented in this encounter
--- OUTSIDE RECORDS SUMMARY | 2025-04-27 02:20 | XMS_ITS | Encounter Summary ---
Author Organization [facility] Address [address] [place] [address] Care Team Providers Care Construction Millwright Name Role Phone Unavailable Primary Care Provider Unavailabl e Encounter Details Date Type Department Care Team (Latest Contact Info) Description 12/20/2006 Outpatient Historical [facility] Family Medicine Leda [facility] [address] Located Within [facility] [address] [place] [phone] Yusra Farah, DIRECTOR OF MEDICAL EDUCATION NO ADDRESS ON FILE Bronchitis, not Specified as Acute or Chronic (Primary Dx) Social History Tobacco Use Types Packs/Day Years Used Date Smoking Tobacco: Never Assessed Comments Unknown Sex and Gender Information Value Date Recorded Sex Assigned at Not on file 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
[2025-04-27 02:31] VITALS: BP 173/94; PULSE 84; RESP 17; TEMP 37.3; O2SAT 96; BMI 40.7
--- NOTE | 2025-04-27 02:38 | ECG_ITS ---
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 Measurements Intervals [place] Rate: 75 P: 102 [place]: 210 QRS: 9 QRSD: 95 T: 76 QT: 381 QTc: 427 Interpretive Statements SINUS RHYTHM WITH SINUS ARRHYTHMIA WITH FIRST DEGREE AV BLOCK Compared to ECG 03/28/2023 12:41:05 First degree AV block now present Electronically Signed On 04-29-2025 09:05:23 CDT by Kenn Perdue M.D. [id number]
[2025-04-27 02:48] VITALS: BP 173/94; PULSE 71; RESP 16; O2SAT 95
--- NOTE | 2025-04-27 03:34 | XRR_ITS ---
PROCEDURE INFORMATION: Exam: XR Chest Exam date and time: 04/27/2025 4:10 AM Age: 79 years old Clinical indication: Injury or trauma; Fall; Blunt trauma (contusions or hematomas); Additional info: Weakness TECHNIQUE: Imaging protocol: Radiologic exam of the chest. Views: 1 view. COMPARISON: No relevant prior studies available. FINDINGS: Lungs: Unremarkable. No consolidation. Pleural spaces: Unremarkable. No pleural effusion. No pneumothorax. Heart/Mediastinum: Unremarkable. No cardiomegaly. Bones/joints: Unremarkable. XR/XR chest 1V portable [id number] IMPRESSION: No acute findings.
--- NOTE | 2025-04-27 03:34 | CTR_ITS ---
PROCEDURE INFORMATION: Exam: CT Head Without Contrast Exam date and time: 04/27/2025 4:04 AM Age: 79 years old Clinical indication: Injury or trauma; Fall; Blunt trauma (contusions or hematomas); Additional info: Weakness, fall TECHNIQUE: Imaging protocol: Computed tomography of the head without contrast. Radiation optimization: All CT scans at this facility use at least one of these dose optimization techniques: automated exposure control; mA and/or kV adjustment per patient size (includes targeted exams where dose is matched to clinical indication); or iterative reconstruction. COMPARISON: CT head wo con* [id number] 03/28/2023 1:04 PM RADIATION DOSE METRICS: Total DLP (mGy-cm): 1108 FINDINGS: Brain: No acute infarction, hemorrhage, mass, or extra-axial fluid collection is identified. No midline shift. 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 Cerebral ventricles: No hydrocephalus. Paranasal sinuses: Paranasal sinuses are grossly clear. Mastoid air cells: Mastoid air cells are grossly clear. Bones: Calvarium appears intact. Soft tissues: Unremarkable. CT/CT head wo con* [id number] IMPRESSION: No acute intracranial abnormality.
[2025-04-27 03:55] LABS: Hematocrit 42.4 % (36-47); Hemoglobin 13.60 g/dL (11.27-16.99); Mean Corpuscular HGB Conc 32.1 g/dL (30-55); Mean Corpuscular Hemoglobin 26.4 pg (27-33); Mean Corpuscular Volume 82.2 fl (85-98); Nucleated Red Blood Cells % 0 %; Platelet Count 160 10^3/cmm (157-399); Red Blood Count 5.16 10^6/uL (3.85-5.65); White Blood Count 12.56 10^3/uL (3.29-11.43)
[2025-04-27 03:59] VITALS: BP 193/84; RESP 16; O2SAT 95
[2025-04-27 04:06] LABS: Glucose Urine UA Negative (Normal); Nitrate Urine Positive (Negative); Specific Gravity, Urine 1.009 (1.005-1.030)
[2025-04-27 04:08] LABS: Alanine Aminotransferase 14 U/L (0-33); Albumin Level 4.0 g/dL (3.5-5.2); Alkaline Phosphatase 113 U/L (35-105); Anion Gap 17.1 (5-19); Aspartate Amino Transferase 32 U/L (0-32); Blood Urea Nitrogen 13 mg/dL (8-23); Calcium 8.7 mg/dL (8.5-10.5); Carbon Dioxide 22 mmol/L (22-29); Chloride 100 mmol/L (98-107); Creatinine Clr Calc Pharmacy 63.9654; Globulin 2.5 g/dL (1.3-4.6); Glucose 120 mg/dL (65-115); Magnesium 2.2 mg/dL (1.7-2.3); Osmolality Calculated 281 mOsm/kg (285-295); Potassium 4.1 mmol/L (3.5-5.1); Sodium 135 mmol/L (136-145); Total Protein 6.5 g/dL (6.6-8.7)
[2025-04-27 04:09] LABS: Lactic Sepsis W/Reflex 1.1 mmol/L (0.5-2.2)
[2025-04-27 04:11] LABS: Add Urine Microscopic? YES; Universal Test for UA Present (0)
[2025-04-27 04:14] LABS: PCP Screen Urine Negative (Negative)
--- NOTE | 2025-04-27 04:16 | W.ED.AMS ---
HPI - Altered Mental Status General: Chief Complaint: Altered Mental Status Stated Complaint: Incoherent, Confusion, Legs not wanting to move Time Seen by Provider: 04/27/25 02:55 History of Present Illness: 79-year-old female who fell on Saturday. She did not hit her head. But since that time, she has been more weak in her legs. She has been somewhat lethargic, and at times seems confused to her daughter. She had a headache prior to her fall, but not since her fall. No vision problems. No definite aphasia. No dizziness. No fever. She has had 3 episodes of diarrhea in the last 24 hours. No significant abdominal pain Related Data Home Medications ?Medication ?Instructions ?Recorded ?Confirmed albuterol sulfate 90 mcg/actuation 1 - 2 puff inhalation Q4H PRN 03/28/23 03/28/23 aerosol inhaler Shortness Of Breath mometasone-formoterol HFA 200 2 puff inhalation BID 03/28/23 03/28/23 mcg-5 mcg/actuation aerosol inhaler (Dulera) Previous Rx's ?Medication ?Instructions ?Recorded amlodipine 5 mg tablet 5 mg PO DAILY #30 tabs 04/27/25 cefdinir 300 mg capsule 300 mg PO BID #14 caps 04/27/25 Allergies Allergy/AdvReac Type Severity Reaction Status Date / Time pineapple Allergy ALGY-Anaphy Verified 03/28/23 12:37 laxis Physical Exam Const: COMMON NORMALS: no acute distress GENERAL APPEARANCE: cooperative; not ill appearing and not frail appearing HENMT: COMMON NORMALS: normocephalic, atraumatic and Normal external nose present HEAD & SCALP: normocephalic and atraumatic FACE & SINUS: normal facial exam and face symmetric NOSE: Normal external nose present Eye: COMMON NORMALS: Equal, round and reactive pupils present and EOMs intact bilaterally PUPIL: Yes Equal, round and reactive pupils present Neck/C-Spine: GENERAL: Yes trachea midline Chest: CHEST: Yes Symmetrical chest wall rise Resp: COMMON NORMALS: normal respiratory effort, No retractions, No use of accessory muscles and clear to auscultation bilaterally AUSCULTATION: clear to auscultation bilaterally Cardio: COMMON NORMALS: regular rate and regular rhythm RATE: regular rate RHYTHM: regular rhythm HEART SOUNDS: Murmur heart sound present GI: COMMON NORMALS: Normal to inspection, nondistended, normoactive bowel sounds present Extremity: COMMON NORMALS: no pedal edema Neuro: ARMANDO COMA SCALE: document GCS findings Armando coma scale eye opening: Spontaneous Anderson coma scale verbal response: Orientated Armando coma scale motor response: Obey commands Anderson coma scale total score: 15 SENSORY EXAM: Yes extremities (intact) Psych: COMMON NORMALS: speech normal SPEECH: Yes normal speech Skin: COMMON NORMALS: no rashes or lesions noted GENERAL SKIN EXAM: no rashes or lesions noted Course Vital Signs: Vital signs: Vital Signs Temperature 99.1 F 04/27/25 02:31 Pulse Rate 71 04/27/25 02:48 Respiratory Rate 16 04/27/25 03:59 Blood Pressure 193/84 04/27/25 03:59 Pulse Oximetry 95 04/27/25 03:59 Oxygen Delivery Me thod Room Air 04/27/25 02:48 MDM - Altered Mental Status Medical Decision Making This patient is alert and talking. She does not seem confused currently. Temperature is 99.1. She is somewhat hypertensive, currently 171/84. White blood cell count is 12.5. Sodium 135. Her CRP is 98. Lactic acid is only 1.1. She is feeling improved after fluid here. She has received IV Rocephin for a significant urinary tract infection. Chest x-ray is negative. Head CT is negative. She wishes to go home, as her has dementia and she takes care of him. Her daughter is with her as well. She will be discharged on antibiotics for UTI to return for any worsening or new symptoms. Lab Data 04/27/25 02:45 04/27/25 02:45 Radiology Impressions Chest X-Ray 04/27/25 03:34 IMPRESSION: No acute findings. Head CT 04/27/25 03:34 IMPRESSION: No acute intracranial abnormality. Laboratory Results WBC 12.56 10^3/uL (3.29-11.43) H 04/27/25 02:45 RBC 5.16 10^6/uL (3.85-5.65) 04/27/25 02:45 Hgb 13.60 g/dL (11.27-16.99) 04/27/25 02:45 Hct 42.4 % (36-47) 04/27/25 02:45 MCV 82.2 fl (85-98) L 04/27/25 02:45 MCH 26.4 pg (27-33) L 04/27/25 02:45 MCHC 32.1 g/dL (30-55) 04/27/25 02:45 RDW 15.4 % (12.1-15.1) H 04/27/25 02:45 Plt Count 160 10^3/cmm (157-399) 04/27/25 02:45 MPV 10.5 fL (7.4-10.4) H 04/27/25 02:45 Neut % (Auto) 67.4 % 04/27/25 02:45 Lymph % (Auto) 23.7 % 04/27/25 02:45 Callahan % (Auto) 8.4 % 04/27/25 02:45 Eos % (Auto) 0.1 % 04/27/25 02:45 Baso % (Auto) 0.2 % 04/27/25 02:45 Neut # (Auto) 8.47 10^3/uL (1.8-7.7) H 04/27/25 02:45 Lymph # (Auto) 3.0 10^3/uL (0.8-4.8) 04/27/25 02:45 Callahan # (Auto) 1.1 10^3/uL (0.2-0.9) H 04/27/25 02:45 Eos # (Auto) 0.0 10^3/uL (0.0-0.8) 04/27/25 02:45 Baso # (Auto) 0.0 10^3/uL (0.0-0.1) 04/27/25 02:45 Nucleated RBC % (auto) 0 % 04/27/25 02:45 Nucleated RBCs # 0.0 /100WBC 04/27/25 02:45 Sodium 135 mmol/L (136-145) L 04/27/25 02:45 Potassium 4.1 mmol/L (3.5-5.1) 04/27/25 02:45 Chloride 100 mmol/L (98-107) 04/27/25 02:45 Carbon Dioxide 22 mmol/L (22-29) 04/27/25 02:45 Anion Gap 17.1 (5-19) 04/27/25 02:45 BUN 13 mg/dL (8-23) 04/27/25 02:45 Creatinine 0.9 mg/dL (0.5-0.9) 04/27/25 02:45 GFR Calculation Not Reportable 04/27/25 02:45 Glucose 120 mg/dL (65-115) H 04/27/25 02:45 Calculated Osmolality 281 mOsm/kg (285-295) L 04/27/25 02:45 Lactic Acid 1.1 mmol/L (0.5-2.2) 04/27/25 02:45 Calcium 8.7 mg/dL (8.5-10.5) 04/27/25 02:45 Magnesium 2.2 mg/dL (1.7-2.3) 04/27/25 02:45 Total Bilirubin 0.8 mg/dL (0.15-1.2) 04/27/25 02:45 AST 32 U/L (0-32) 04/27/25 02:45 ALT 14 U/L (0-33) 04/27/25 02:45 Alkaline Phosphatase 113 U/L (35-105) H 04/27/25 02:45 Creatine Kinase 595 U/L (26-192) H* 04/27/25 02:45 C-Reactive Protein 98.2 mg/L (0.0-4.9) H 04/27/25 02:45 Total Protein 6.5 g/dL (6.6-8.7) L 04/27/25 02:45 Albumin 4.0 g/dL (3.5-5.2) 04/27/25 02:45 Globulin 2.5 g/dL (1.3-4.6) 04/27/25 02:45 Urine Color Yellow (Yellow) 04/27/25 03:57 Urine Appearance Turbid (CLEAR) A 04/27/25 03:57 Urine pH 5.5 (5-7) 04/27/25 03:57 Ur Specific [place] 1.009 (1.005-1.030) 04/27/25 03:57 Urine Protein Negative (Negative) 04/27/25 03:57 Urine Glucose (UA) Negative (Normal) 04/27/25 03:57 Urine Ketones Negative (Negative) 04/27/25 03:57 Urine Blood 1+ (Negative) A 04/27/25 03:57 Urine Nitrate Positive (Negative) A 04/27/25 03:57 Urine Bilirubin Negative (Negative) 04/27/25 03:57 Urine Urobilinogen 1.0 mg/dL (Negative) 04/27/25 03:57 Ur Leukocyte Esterase 3+ (Negative) A 04/27/25 03:57 Urine RBC 51-100 /hpf (0-2) H 04/27/25 03:57 Urine WBC >100 /hpf (0-5) H 04/27/25 03:57 Ur Squamous Epith Cells 6-10 /hpf (0-5) 04/27/25 03:57 Amorphous Sediment Not Reportable 04/27/25 03:57 Urine Bacteria 4+ /hpf (NONE) H 04/27/25 03:57 Hyaline Casts 1.65 /lpf 04/27/25 03:57 Urine Opiates Screen Negative ng/mL (Negative) 04/27/25 03:57 Ur Barbiturates Screen Negative ng/mL (Negative) 04/27/25 03:57 Ur Phencyclidine Scrn Negative ng/mL (Negative) 04/27/25 03:57 Ur Amphetamines Screen Negative ng/mL (Negative) 04/27/25 03:57 U Benzodiazepines Scrn Negative ng/mL (Negative) 04/27/25 03:57 Urine Cocaine Screen Negative ng/mL (Negative) 04/27/25 03:57 U Marijuana (THC) Screen Negative ng/mL (Negative) 04/27/25 03:57 All radiology interpretation(s) finalized by discharge Discharge Plan Discharge Patient Disposition: Home Clinical Impression: Urinary tract infection Condition: Stable Prescriptions: New cefdinir 300 mg capsule 300 mg PO BID Qty: 14 0RF amlodipine 5 mg tablet 5 mg PO DAILY Qty: 30 0RF No Action albuterol sulfate 90 mcg/actuation HFA aerosol inhaler 1 - 2 puff INHALATION Q4H PRN (Reason: Shortness Of Breath) Dulera 200-5 mcg/actuation HFA aerosol inhaler 2 puff INHALATION BID Discharge Orders: Discharge ED (Routine); Ordered 04/27/25 Ordered By: Aristides Marr Patient Instructions: Altered Mental Status (ED), Urinary Tract Infection in Older Adults (ED), Opioid Safety, Pain Management, Patient Portal & Buster Instructions Activity Restrictions/Additional Instructions: Antibiotics as directed. Plenty of fluids. Return for fever despite 2-3 more doses of antibiotics, continued altered mental status, worsening lethargy or weakness, or other concerning symptoms. Your urine will need retested later this week to ensure you are clearing the infection. Check your blood pressure twice daily. If numbers are staying greater than 150 systolic (the top number) take medication prescribed. Print Language: Luxembourger Coding Level of Care Code ED Dental Laboratory Technician for Donna Walters
[2025-04-27 04:44] LABS: UA Slide Review UA Slide Review Perf
[2025-04-27] MEDS: cefTRIAXone 1,000 mg SDV 1000 MG IVP (05:43)
[2025-04-27 06:17] VITALS: BP 186/80; PULSE 72; RESP 14; O2SAT 95
== END 2025-04-27 06:19 | disposition home or self-care (01) ==
PROVIDERS: Emergency Provider Emergency Medicine
DX: N39.0 Urinary tract infection, site not specified (principal)
CPT/HCPCS: 70450; 71045; 80053; 80306; 81001; 82550; 83605; 83735; 85025; 86140; 87086; 93005; 96361; 96374; 99285; J0696; J7030